=== PATIENT | male | born 2000 | race Hispanic/Latino ===

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

== ENCOUNTER 2022-07-18 09:36 | Emergency (ER) | payer OTHER, SELFPAY ==
--- OUTSIDE RECORDS SUMMARY | 2022-07-18 09:41 | XMS REPORT | Continuity of Care Document ---
:2000 Author Organization [facility] t Address [address] [place] [address] [address]. [address] [place] [address] Care Team Providers Name Role Phone Pob1, Acute Care Clinic Attending Clinician Unavailable Katharina Minor Attending Clinician KATHARINA FISHER Attending Clinician Unavailable Doctor Unassigned, [place] Attending Clinician Unavailable Berenice Arreola Attending Clinician Payers Payer Name Policy Type Policy Number Effective Date Expiration Date S ource Problems Condition Condition Condition Status Onset Resolution Last Treating Co mments Source Name Details Category Date Date Treatment Clinician Date Cough Cough Disease Active 2019-0 Univers 2-06 ity of 00:00: [address] Lymphadeni Lymphadeni Disease Active 2018-0 U nivers tis tis 8-23 ity of 00:00: [address] Lactose Lactose Disease Active Univers intoleranc intoleranc it y of e e [facility] History of History of Disease Active Overview : Univers migraine migraine triggers ity of headaches headaches - [place], Medical noise, Branch chocolate Allergic Allergic Disease Active Overview: Un yuri rhinitis, rhinitis, Usually ity of seasonal seasonal in the [facility] Allergies, Adverse Reactions, Alerts Allergy Allergy Status Severity Reaction(s) Onset Inactive Treating Comm ents Source Name Type Date Date Clinician NO KNOWN Drug Active Univers ALLERGIE Class ity of S [facility] Social History Social Habit Start Date Stop Date Quantity Comments Source Sex Assigned At Universit y of [facility] History of Cigarette Smoker Universi ty of tobacco use [facility] Alcohol intake 2020-01-24 2020-01-24 University of 00:00:00 00:00:00 [facility] Cigarettes smoked 2020-01-24 2020-01-24 Univers ity of current (pack per 00:00:00 00:00:00 ) - Reported [place] Tobacco Comment 2018-12-11 2018-12-11 He currently Univers ity of 00:00:00 00:00:00 occasionally vapes Formerly [facility] - nicotine free by [place] report Smoking Status Start Date Stop Date Source Current every day 2020-01-24 00:00:00 [facility] smoker [facility] Branch Former smoker 2019-03-03 00:00:00 2019-03-03 00:00:00 [facility] Medications Ordered Filled Start Stop Current Ordering Indication Dosage Frequency Signature Comments Components Source Medication Medication Date Date Medication? Clinician (SIG) Name Name ibuprofen 2019- 2020- No 800mg 800 mg, Uni vers (IBU) 12-17 Oral, ity of tablet 800 23:00: 22:16 ONCE, 1 [place] as mg 00 :00 dose, [facility] 12/17/19 at [place] 1700, BEBETO ondansetron 2019- 2020- No 4mg 4 mg, Univ ers (ZOFRAN-ODT 12-17 Oral, ity of ) 23:00: 22:16 ONCE, 1 [place] disintegrat 00 :00 dose, [facility] ical ing tablet 12/17/19 at [facility] 4 mg 1700, Routine ondansetron 2020-0 Yes [id number] 4mg Take 1 Univers (ZOFRAN 2-12 tablet by ity of ODT) 4 mg 00:00: mouth [place] disintegrat 00 every 8 Medic al ing tablet (eight) Branch hours as needed for Nausea and Vomiting (N/V) for up to 9 doses. ondansetron 2020-0 Yes [id number] 4mg Take 1 Univers (ZOFRAN 2-12 tablet by ity of ODT) 4 mg 00:00: mouth [place] disintegrat 00 every 8 Medic al ing tablet (eight) Branch hours as needed for Nausea and Vomiting (N/V) for up to 9 doses. ondansetron 2020-0 Yes [id number] 4mg Take 1 Univers (ZOFRAN 2-12 tablet by ity of ODT) 4 mg 00:00: mouth [place] disintegrat 00 every 8 Medic al ing tablet (eight) Branch hours as needed for Nausea and Vomiting (N/V) for up to 9 doses. ondansetron 2020-0 Yes [id number] 4mg Take 1 Univers (ZOFRAN 2-12 tablet by ity of ODT) 4 mg 00:00: mouth [place] disintegrat 00 every 8 Medic al ing tablet (eight) Branch hours as needed for Nausea and Vomiting (N/V) for up to 9 doses. ondansetron 2020- No [id number] 4mg Take 1 Univers 4 mg 03-03 tablet by ity of disintegr[place] 00:00: 00:[place] tablet 00 :00 every 8 Medica l (eight) Branch hours as needed for Nausea and Vomiting (N/V). Immunizations Ordered Immunization Filled Immunization Date Status Commen ts Source Name Name PPD (TB) 2018-06-26 Completed University of 00:00:00 [facility] PPD (TB) 2018-06-26 Completed University of 00:00:00 [facility] PPD (TB) 2018-06-26 Completed University of 00:00:00 [facility] PPD (TB) 2018-06-26 Completed University of 00:00:00 [facility] HPV 2017-04-23 Completed University of 00:00:00 [facility] Meningococcal 2017-04-23 Completed University of Vaccine 00:00:00 [facility] HPV 2017-04-23 Completed University of 00:00:00 [facility] Meningococcal 2017-04-23 Completed University of Vaccine 00:00:00 [facility] HPV 2017-04-23 Completed University of 00:00:00 [facility] Meningococcal 2017-04-23 Completed University of Vaccine 00:00:00 [facility] HPV 2017-04-23 Completed University of 00:00:00 [facility] Meningococcal 2017-04-23 Completed University of Vaccine 00:00:00 [facility] HEPATITIS A 2011-02-22 Completed University of 00:00:00 [facility] HPV 2011-02-22 Completed University of 00:00:00 [facility] Meningococcal 2011-02-22 Completed University of Vaccine 00:00:00 [facility] Tdap 2011-02-22 Completed University of 00:00:00 [facility] HEPATITIS A 2011-02-22 Completed University of 00:00:00 [facility] HPV 2011-02-22 Completed University of 00:00:00 [facility] Meningococcal 2011-02-22 Completed University of Vaccine 00:00:00 [facility] Tdap 2011-02-22 Completed University of 00:00:00 [facility] HEPATITIS A 2011-02-22 Completed University of 00:00:00 [facility] HPV 2011-02-22 Completed University of 00:00:00 [facility] Meningococcal 2011-02-22 Completed University of Vaccine 00:00:00 [facility] Tdap 2011-02-22 Completed University of 00:00:00 [facility] HEPATITIS A 2011-02-22 Completed University of 00:00:00 [facility] HPV 2011-02-22 Completed University of 00:00:00 [facility] Meningococcal 2011-02-22 Completed University of Vaccine 00:00:00 [facility] Tdap 2011-02-22 Completed University of 00:00:00 [facility] HEPATITIS A 2010-01-28 Completed University of 00:00:00 [facility] Varicella 2010-01-28 Completed University of (varivax)(chicken 00:00:00 [place] [facility] pox) Branch HEPATITIS A 2010-01-28 Completed University of 00:00:00 [facility] Varicella 2010-01-28 Completed University of (varivax)(chicken 00:00:00 [place] [facility] pox) Branch HEPATITIS A 2010-01-28 Completed University of 00:00:00 [facility] Varicella 2010-01-28 Completed University of (varivax)(chicken 00:00:00 [place] [facility] pox) Branch HEPATITIS A 2010-01-28 Completed University of 00:00:00 [facility] Varicella 2010-01-28 Completed University of (varivax)(chicken 00:00:00 [place] [facility] [place] pox) [place] Influenza Virus 2009-09-16 Completed Universit y of Vaccine 00:00:00 [facility] Influenza Virus 2009-09-16 Completed Universit y of Vaccine 00:00:00 [facility] Influenza Virus 2009-09-16 Completed Universit y of Vaccine 00:00:00 [facility] Influenza Virus 2009-09-16 Completed Universit y of Vaccine 00:00:00 [facility] Hep B, Adol or Pedi 2004-06-10 Completed Unive rsity of Dosage 00:00:00 [facility] Hep B, Adol or Pedi 2004-06-10 Completed Unive rsity of Dosage 00:00:00 [facility] Hep B, Adol or Pedi 2004-06-10 Completed Unive rsity of Dosage 00:00:00 [facility] Hep B, Adol or Pedi 2004-06-10 Completed Unive rsity of Dosage 00:00:00 [facility] DTAP 2004-06-09 Completed University of 00:00:00 [facility] MMR 2004-06-09 Completed University of 00:00:00 [facility] Polio (IPV/OPV) 2004-06-09 Completed Universit y of 00:00:00 [facility] DTAP 2004-06-09 Completed University of 00:00:00 [facility] MMR 2004-06-09 Completed University of 00:00:00 [facility] Polio (IPV/OPV) 2004-06-09 Completed Universit y of 00:00:00 [facility] DTAP 2004-06-09 Completed University of 00:00:00 [facility] MMR 2004-06-09 Completed University of 00:00:00 [facility] Polio (IPV/OPV) 2004-06-09 Completed Universit y of 00:00:00 [facility] DTAP 2004-06-09 Completed University of 00:00:00 [facility] MMR 2004-06-09 Completed University of 00:00:00 [facility] Polio (IPV/OPV) 2004-06-09 Completed Universit y of 00:00:00 [facility] HIB 4 Dose Schedule 2001-05-17 Completed Unive rsity of 00:00:00 [facility] Hep B, Adol or Pedi 2001-05-17 Completed Unive rsity of Dosage 00:00:00 [facility] MMR 2001-05-17 Completed University of 00:00:00 [facility] Varicella 2001-05-17 Completed University of (varivax)(chicken 00:00:00 [place] [facility] [place] pox) Branch Pneumococcal 7 2001-05-17 Completed University of Conjugate, PCV7 00:00:00 [facility] ical (Prevnar7) Branch HIB 4 Dose Schedule 2001-05-17 Completed Unive rsity of 00:00:00 [facility] Hep B, Adol or Pedi 2001-05-17 Completed Unive rsity of Dosage 00:00:00 [facility] MMR 2001-05-17 Completed University of 00:00:00 [facility] Varicella 2001-05-17 Completed University of (varivax)(chicken 00:00:00 [place] [facility] [place] pox) Branch Pneumococcal 7 2001-05-17 Completed University of Conjugate, PCV7 00:00:00 [place] [facility] (Prevnar7) Branch HIB 4 Dose Schedule 2001-05-17 Completed Unive rsity of 00:00:00 [facility] Hep B, Adol or Pedi 2001-05-17 Completed Unive rsity of Dosage 00:00:00 [facility] MMR 2001-05-17 Completed University of 00:00:00 [facility] Varicella 2001-05-17 Completed University of (varivax)(chicken 00:00:00 [place] [facility] pox) Branch Pneumococcal 7 2001-05-17 Completed University of Conjugate, PCV7 00:00:00 [place] [facility] (Prevnar7) Branch HIB 4 Dose Schedule 2001-05-17 Completed Unive rsity of 00:00:00 [facility] Hep B, Adol or Pedi 2001-05-17 Completed Unive rsity of Dosage 00:00:00 [facility] MMR 2001-05-17 Completed University of 00:00:00 [facility] Varicella 2001-05-17 Completed University of (varivax)(chicken 00:00:00 [facility] [place] edical pox) Branch Pneumococcal 7 2001-05-17 Completed University of Conjugate, PCV7 00:00:00 [place] [facility] (Prevnar7) Branch DTAP 2000 Completed University of 00:00:00 [facility] HIB 4 Dose Schedule 2000 Completed Unive rsity of 00:00:00 [facility] Hep B, Adol or Pedi 2000 Completed Unive rsity of Dosage 00:00:00 [facility] Polio (IPV/OPV) 2000 Completed Universit y of 00:00:00 [facility] DTAP 2000 Completed University of 00:00:00 [facility] HIB 4 Dose Schedule 2000 Completed Unive rsity of 00:00:00 [facility] Hep B, Adol or Pedi 2000 Completed Unive rsity of Dosage 00:00:00 [facility] Polio (IPV/OPV) 2000 Completed Universit y of 00:00:00 [facility] DTAP 2000 Completed University of 00:00:00 [facility] HIB 4 Dose Schedule 2000 Completed Unive rsity of 00:00:00 [facility] Hep B, Adol or Pedi 2000 Completed Unive rsity of Dosage 00:00:00 [facility] Polio (IPV/OPV) 2000 Completed Universit y of 00:00:00 [facility] DTAP 2000 Completed University of 00:00:00 [facility] HIB 4 Dose Schedule 2000 Completed Unive rsity of 00:00:00 [facility] Hep B, Adol or Pedi 2000 Completed Unive rsity of Dosage 00:00:00 [facility] Polio (IPV/OPV) 2000 Completed Universit y of 00:00:00 [facility] DTAP 2000 Completed University of 00:00:00 [facility] HIB 4 Dose Schedule 2000 Completed Unive rsity of 00:00:00 [facility] Polio (IPV/OPV) 2000 Completed Universit y of 00:00:00 [facility] DTAP 2000 Completed University of 00:00:00 [facility] HIB 4 Dose Schedule 2000 Completed Unive rsity of 00:00:00 [facility] Polio (IPV/OPV) 2000 Completed Universit y of 00:00:00 [facility] DTAP 2000 Completed University of 00:00:00 [facility] HIB 4 Dose Schedule 2000 Completed Unive rsity of 00:00:00 [facility] Polio (IPV/OPV) 2000 Completed Universit y of 00:00:00 [facility] DTAP 2000 Completed University of 00:00:00 [facility] HIB 4 Dose Schedule 2000 Completed Unive rsity of 00:00:00 [facility] Polio (IPV/OPV) 2000 Completed Universit y of 00:00:00 [facility] DTAP 2000 Completed University of 00:00:00 [facility] HIB 4 Dose Schedule 2000 Completed Unive rsity of 00:00:00 [facility] Polio (IPV/OPV) 2000 Completed Universit y of 00:00:00 [facility] DTAP 2000 Completed University of 00:00:00 [place] [facility] HIB 4 Dose Schedule 2000 Completed Unive rsity of 00:00:00 [place] [facility] Polio (IPV/OPV) 2000 Completed Universit y of 00:00:00 [place] [facility] DTAP 2000 Completed University of 00:00:00 [place] [facility] HIB 4 Dose Schedule 2000 Completed Unive rsity of 00:00:00 [place] [facility] Polio (IPV/OPV) 2000 Completed Universit y of 00:00:00 [place] [facility] DTAP 2000 Completed University of 00:00:00 [place] [facility] HIB 4 Dose Schedule 2000 Completed Unive rsity of 00:00:00 [facility] Branch Polio (IPV/OPV) 2000 Completed Universit y of 00:00:00 [facility] Vital Signs Vital Name Observation Time Observation Value Comments Source Systolic blood 2020-01-24 16:24:00 134 mm[Hg] Univer sity of pressure [facility] Diastolic blood 2020-01-24 16:24:00 84 mm[Hg] Unive rsity of pressure [facility] Heart rate 2020-01-24 16:24:00 66 /min Universi ty of [facility] Body temperature 2020-01-24 16:24:00 37.44 Judy Univ ersity of [facility] Body weight 2020-01-24 16:24:00 47.628 kg Universi ty [facility] Oxygen saturation in 2020-01-24 16:24:00 97 /min University of Arterial blood by [facility] Pulse oximetry Branch Body weight 2019-12-17 21:46:00 50.803 kg Universi ty of [place] [facility] BMI 2019-12-17 21:46:00 17.03 kg/m2 Universi ty of [facility] Oxygen saturation in 2019-12-17 21:46:00 100 /min University of Arterial blood by [facility] Pulse oximetry Branch Systolic blood 2019-12-17 21:46:00 117 mm[Hg] Univer sity of pressure [facility] Diastolic blood 2019-12-17 21:46:00 61 mm[Hg] Unive rsity of pressure [facility] Heart rate 2019-12-17 21:46:00 83 /min Universi ty of [facility] Body temperature 2019-12-17 21:46:00 37.17 Judy [facility] Respiratory rate 2019-12-17 21:46:00 18 /min [facility] Body height 2019-12-17 21:46:00 172.7 cm [facility] Procedures Procedure Date / Time Performed Performing Clinician Sourc e CONSENT/REFUSAL FOR 2020-01-24 05:01:00 [facility]igned, [facility] Branch TREATMENT POCT FLU A AND B 2020-01-24 00:00:00 Katharina Fisher [facility] (MOLECULAR) [facility] RAPID STREP SCREEN 2019-12-17 21:57:00 Berenice Thomas [facility] FOR GROUP A Medical Branch ADC,CLC OR LCC ONLY - 2019-12-17 21:57:00 Berenice Thomas [facility] INFLUENZA A & B [facility] DIRECT ANTIGEN CONSENT/REFUSAL FOR 2019-12-17 21:34:10 [facility] Name [facility] TREATMENT NOTICE OF PRIVACY 2019-12-17 21:31:20 Doctor Unassigned, No [facility] PRACTICES Name [facility] Encounters Start End Encounter Admission Attending Care Care Encounter Source Date/Time Date/Time Type Type Clinicians Facility Department ID 2020-01-24 2020-01-24 Office Pob1, Acute Care Clinic [facility] [id number] Univers 11:15:37 12:12:57 Visit Katharina Fisher [facility] [id number] ity [facility] [id number] [place] as [id number] dical nal 044 Branch Office [address] 2020-01-24 2020-01-24 Outpatient [facility] [id number] Univers 11:20:00 11:20:00 [id number] ity of [facility] 2020-01-24 2020-01-24 Outpatient R NATALIA [facility] [id number] Univers 11:20:00 11:20:00 KATHARINA ity of [facility] 2020-01-24 2020-01-24 Orders Doctor ALARCON [id number] Univers 00:00:00 00:00:00 Only UnassDANIEL hyde [id number] ity of [place] [facility] [id number] [place] as [id number] [facility] 009 Branch 2019-12-17 2019-12-17 Emergency MATEO Thomas [id number] Univers 15:58:17 16:58:00 Berenice Villarreal [id number] i ty of [place] [id number] [place] [id number] [facility] 084 Branch Results Test Description Test Time Test Comments Results Result Comments Source POCT FLU A AND B (MOLECULAR) 2020-01-24 18:04:00 Test Item Value Reference Range Interpretation Comme nts POCT INFLUENZA A (test code = 3840) neg Negative - Negativ e POCT INFLUENZA B (test code = 3841) neg Negative - [facility]ativ e [facility] 18:04:00 Test Item Value Reference Range Interpretation Comments POCT INFLUENZA A (test code = 3840) neg Negative - Negativ e POCT INFLUENZA B (test code = 3841) neg Negative - Negativ e [facility] - INFLUENZA A & B DIRECT [id number] 22:32:00 Test Item Value Reference Range Interpretation Comments Influenza A (test code = 54181-5) Negative Negative Influenza B (test code = 15386-9) Negative Negative Lab Interpretation (test code = Normal 71354-9) [facility] [id number] 22:17:00 Test Item Value Reference Range Interpretation Comments Streptococcus pyogenes (group A) Negative Negative antigen (test code = 38100-7) Lab Interpretation (test code = Normal 06561-5) [facility]
--- NOTE | 2022-07-18 12:45 | RAD REPORT ---
EXAM DESCRIPTION: US - Extrem Venous W Compress Darin - 07/18/2022 12:24 pm CLINICAL HISTORY: pain, numbnessbilateral lower extremities COMPARISON: None. TECHNIQUE: Real-time sonographic evaluation of the bilateral lower extremity common femoral, superfi cial femoral, popliteal and posterior tibial veins was performed. FINDINGS: Normal compressibility, flow augmentation, phasic flow and spontaneous flow are identified in the left and right lower extremity common femoral, superficial femoral, popliteal and posterior t ibial veins. No intraluminal filling defects seen. IMPRESSION: No DVT in either lower extremity.
--- NOTE | 2022-07-18 12:57 | RAD REPORT ---
EXAM DESCRIPTION: RAD - Lumbar Spine 3 Views - 07/18/2022 12:30 pm CLINICAL HISTORY: Pain Radiculopathy COMPARISON: No comparisons FINDINGS: Vertebral body heights appear maintained. No compression fracture noted. Disc spaces are m aintained. No spondylolysis or spondylolisthesis. IMPRESSION: Negative study.
[2022-07-18 13:20] LABS: SARS-CoV-2 Antigen Rapid Res Negative (Negative)
[2022-07-18 13:22] LABS: Albumin 4.2 g/dL (3.4-5.0); Bilirubin Total 1.5 mg/dL (0.2-1.0); Potassium 3.2 mmol/L (3.5-5.1); Protein, Total 7.4 g/dL (6.4-8.2)
[2022-07-18 13:42] LABS: Absolute Lymphocytes (CBC) 1.2 K/uL (0.7-4.9); Hematocrit 55.3 % (39.6-49.0); MCV 98.7 fL (80-100); MPV 8.4 fL (7.6-11.3)
--- NOTE | 2022-07-18 14:33 | RAD REPORT ---
EXAM DESCRIPTION: MRI - Lumbar Spine Wo [place]- 07/18/2022 2:07 pm CLINICAL HISTORY: leg paresthesias, weakness, back pain COMPARISON: No comparisons FINDINGS: Vertebral body heights are within normal limits. No aggressive marrow pattern is observed. No fracture is suspected. The conus medullaris terminates at a normal level. No thickening of the cauda equina or clumping of n erve roots seen. L1-2 level: No significant findings. L2-3 level: No significant findings. L3-4 level: Mild facet hypertrophy. L4-5 level: Mild facet hypertrophy. L5-S1 level: Mild facet hypertrophy. IMPRESSION: No significant or worrisome abnormality seen.
[2022-07-18 14:43] LABS: Urine Blood Negative (Negative); Urine Glucose Negative (Negative); Urine Protein 1+ (Negative); Urine Specific Gravity 1.025 (1.005-1.030)
[2022-07-18 15:06] LABS: Barbiturates NEGATIVE (NEGATIVE); Benzodiazepines NEGATIVE (NEGATIVE); Cocaine NEGATIVE (NEGATIVE); METHAMPHETAM NEGATIVE (NEGATIVE); Methadone NEGATIVE (NEGATIVE); Opiates POSITIVE (NEGATIVE); Phencyclidine NEGATIVE (NEGATIVE); THC Cannibis POSITIVE (NEGATIVE)
--- NOTE | 2022-07-18 15:24 | ER ---
Nurse's Notes [facility] Name: Jose Boyer Jr Age: 22 yrs Sex: Male : 2000 Arrival Date: 07/18/2022 Time: 09:38 Bed 9 Private MD: Diagnosis: Peripheral neuropathy;UTI/ Urinary tract infection, site not specified Presentation: 07/18 10:24 Chief complaint: Patient states: Numbness of legs and toes x 2 weeks, low back pain [facility] while laying down. Coronavirus screen: At this time, the client does not indicate any symptoms associated with coronavirus-19. Ebola Screen: No symptoms or risks identified at this time. Initial Sepsis Screen: Does the patient meet any 2 criteria? No. Patient's initial sepsis screen is negative. Does the patient have a suspected source of infection? No. Patient's initial sepsis screen is negative. Risk Assessment: Do you want to hurt yourself or someone else? Patient reports no desire to harm self or others. Onset of symptoms was July 04, 2022. 10:24 Method Of Arrival: Ambulatory [facility] 10:24 Acuity: LUAN 2 jl7 Triage Assessment: 10:24 General: Appears in no apparent distress. uncomfortable, Behavior is cooperative, jl7 appropriate for age, anxious. Pain: Complains of pain in right leg and left leg Pain currently is 5 out of 10 on a pain scale. at worst was 9 out of 10 on a pain scale. Historical: - Allergies: 10:25 No Known Allergies; [facility] - Home Meds: 10:25 None [Active]; [facility] - PMHx: 10:25 None; [facility] - PSHx: 10:25 None; [facility] - Immunization history:: Adult Immunizations not up to date. - Social history:: Smoking status: Patient reports the use of cigarette tobacco products, smokes one-half pack cigarettes per day, Patient uses alcohol, on a daily basis. 2 tall boys, last drink 2 days ago. Screenin:56 Abuse screen: Denies threats or abuse. Denies injuries from another. Nutritional jg9 screening: No deficits noted. Tuberculosis screening: No symptoms or risk factors identified. Fall Risk None identified. Assessment: 12:45 Reassessment: No changes from previously documented assessment. Patient and/or family jg9 updated on plan of care and expected duration. Pain level reassessed. Patient is alert, oriented x 3, equal unlabored respirations, skin warm/dry/pink. 14:00 Reassessment: Patient appears in no apparent distress at this time. No changes from jg9 previously documented assessment. Patient and/or family updated on plan of care and expected duration. Pain level reassessed. Patient is alert, oriented x 3, equal unlabored respirations, skin warm/dry/pink. 15:00 Reassessment: Patient and/or family updated on plan of care and expected duration. Pain jg9 level reassessed. Patient is alert, oriented x 3, equal unlabored respirations, skin warm/dry/pink. Vital Signs: 10:24 BP 151 / 107; Pulse 127; Resp 17; Temp 98.9; Pulse Ox 100% ; Weight 60.78 kg; Height 5 [facility] ft. 9 in. (175.26 cm); Pain 5/10; 12:45 BP 143 / 90; Pulse 104; Resp 18 S; Pulse Ox 99% on R/A; jg9 13:00 BP 129 / 85; Pulse 85; Resp 13 S; Pulse Ox 98% on R/A; jg9 14:00 BP 131 / 99; Pulse 70; Resp 12 S; Pulse Ox 99% on R/A; jg9 15:00 BP 131 / 100; Pulse 67; Resp 16 S; Pulse Ox 99% ; jg9 10:24 Body Mass Index 19.79 (60.78 kg, 175.26 cm) 5 ED Course: 09:38 Patient arrived in ED. rg4 10:24 Arm band placed on right wrist. jl7 10:25 Triage completed. 5 11:05 Ortiz Luong PA is PHCP. jmm 11:05 Nik Fajardo MD is Attending Physician. jmm 11:27 Arlin Haskins, NATHANAEL is Primary Nurse. jg9 12:26 US Extremity Venous W Compression Darin In Process Unspecified. EDMS 12:32 XRAY Lumbar Spine (3 Views) In Process Unspecified. EDMS 12:45 Inserted saline lock: 20 gauge in right antecubital area, using aseptic technique. jg9 Blood collected. 12:56 Patient has correct armband on for positive identification. Bed in low position. Call jg9 light in reach. Side rails up X 1. 14:09 MRI Lumbar Spine wo Con In Process Unspecified. EDMS 15:23 Bill Banegas MD is Referral Physician. [facility] 15:24 Ulises Patterson MD is Referral Physician. [facility] 15:43 No provider procedures requiring assistance completed. jg9 15:44 IV discontinued. jg9 Administered Medications: 15:37 Drug: Rocephin (cefTRIAXone) 1 grams Route: IV; Rate: calculated rate; Site: right jg9 antecubital; 15:40 Follow up: IV Status: Completed infusion; IV Intake: 10ml jg9 15:37 Drug: Zithromax (azithromycin) 1 grams Route: PO; jg9 15:42 Follow up: Response: No adverse reaction; Medication administered at discharge. jg9 Medication: 15:44 VIS not applicable for this client. jg9 Intake: 15:40 IV: 10ml; Total: 10ml. jg9 Outcome: 15:24 Discharge ordered by MD. [facility] 15:43 Discharged to home ambulatory. jg9 15:43 Condition: stable 15:43 Discharge instructions given to patient, Instructed on discharge instructions, follow up and referral plans. Demonstrated understanding of instructions, follow-up care, Prescriptions given X 2. 15:44 Patient left the ED. jg9 Signatures: Dispatcher [employer] EDPA Ortiz Luong PA PA jmm Garcia, Rubi rg4 Rama Levy RN RN jl7 Lisa Alcazar RN RN jh5 Arlin Haskins RN RN jg9 Corrections: (The following items were deleted from the chart) 10:37 10:24 Acuity: LUAN 3 zaida presley
--- NOTE | 2022-07-18 15:24 | EDPHYS ---
Physician Documentation [facility] Name: Jose Boyer Jr Age: 22 yrs Sex: Male : 2000 Arrival Date: 07/18/2022 Time: 09:38 Bed 9 Private MD: ED Physician Nik Fajardo HPI: 07/18 10:41 This 22 yrs old Male presents to ER via Ambulatory with complaints of Numbness jmm Of Leg X 1wk, Trouble Walking. 10:41 22-year-old male with no known chronic medical conditions presents emerged department jmm with complaints of right and left lower extremity pain and numbness which has been ongoing for approximately 3 weeks. Denies fever or chills. Denies known back injury. Does state having a family history of fibromyalgia.. Historical: - Allergies: 10:25 No Known Allergies; [facility] - Home Meds: 10:25 None [Active]; [facility] - PMHx: 10:25 None; [facility] - PSHx: 10:25 None; [facility] - Immunization history:: Adult Immunizations not up to date. - Social history:: Smoking status: Patient reports the use of cigarette tobacco products, smokes one-half pack cigarettes per day, Patient uses alcohol, on a daily basis. 2 tall boys, last drink 2 days ago. ROS: 10:41 Constitutional: Negative for fever, chills, and weight loss, Cardiovascular: Negative jmm for chest pain, palpitations, and edema, Respiratory: Negative for shortness of breath, cough, wheezing, and pleuritic chest pain. 10:41 MS/extremity: Positive for paresthesias. 10:41 All other systems are negative. Exam: 10:41 Constitutional: This is a well developed, well nourished patient who is awake, alert, jmm and in no acute distress. Head/Face: atraumatic. Eyes: EOMI, no conjunctival erythema appreciated ENT: Moist Mucus Membranes Neck: Trachea midline, Supple Chest/axilla: Normal chest wall appearance and motion. Cardiovascular: Regular rate and rhythm. No edema appreciated Respiratory: Normal respirations, no respiratory distress appreciated Abdomen/GI: Non distended Back: Normal ROM 10:41 Musculoskeletal/extremity: Full range of motion appreciated to the right and left knee, ankle. Compartments are soft, sensation is intact bilaterally full dorsalis pedis pulse, neurovascular intact. 10:41 Skin: Appearance: Color: normal in color. 10:41 Neuro: Orientation: is normal, Mentation: is normal, Memory: is normal. 10:41 Psych: Behavior/mood is pleasant, cooperative. Vital Signs: 10:24 BP 151 / 107; Pulse 127; Resp 17; Temp 98.9; Pulse Ox 100% ; Weight 60.78 kg; Height 5 jh5 ft. 9 in. (175.26 cm); Pain 5/10; 12:45 BP 143 / 90; Pulse 104; Resp 18 S; Pulse Ox 99% on R/A; jg9 13:00 BP 129 / 85; Pulse 85; Resp 13 S; Pulse Ox 98% on R/A; jg9 14:00 BP 131 / 99; Pulse 70; Resp 12 S; Pulse Ox 99% on R/A; jg9 15:00 BP 131 / 100; Pulse 67; Resp 16 S; Pulse Ox 99% ; jg9 10:24 Body Mass Index 19.79 (60.78 kg, 175.26 cm) [facility] MDM: 11:05 Patient medically screened. aliza 15:22 Data reviewed: vital signs, nurses notes. Counseling: I had a detailed discussion with aliza the patient and/or guardian regarding: the historical points, exam findings, and any diagnostic results supporting the discharge/admit diagnosis, lab results, radiology results, the need for outpatient follow up, to return to the emergency department if symptoms worsen or persist or if there are any questions or concerns that arise at home. ED course: Imaging studies did not reveal any potential cause of paresthesias of the lower extremities. Patient is able to ambulate. Patient appears to have a peripheral neuropathy or restless leg syndrome. Advised to follow-up with neurology for further evaluation otherwise given strict return precautions. Patient and mother understood and agrees plan of care.. 07/18 10:41 Order name: SARS RAPID; Complete Time: 13:27 [facility] 07/18 10:41 Order name: Flu; Complete Time: 13:27 w 07/18 10:41 Order name: Urine Drug Screen; Complete Time: 15:09 w 07/18 10:41 Order name: Urine Microscopic Only; Complete Time: 15:34 [facility] 07/18 11:06 Order name: CBC with Diff; Complete Time: 13:53 [facility] 07/18 11:06 Order name: CMP; Complete Time: 13:27 [facility] 07/18 10:41 Order name: Urine Dipstick-Ancillary (obtain specimen); Complete Time: 15:37 [facility] 07/18 10:41 Order name: XRAY Lumbar Spine (3 Views); Complete Time: 12:58 sn[facility] 07/18 11:06 Order name: Saline Lock; Complete Time: 15:37 [facility] 07/18 11:07 Order name: MRI Lumbar Spine wo Con; Complete Time: 14:35 [facility] 07/18 11:15 Order name: US Extremity Venous W Compression Darin; Complete Time: 12:52 [facility] 07/18 14:44 Order name: Urine Dipstick-Ancillary; Complete Time: 15:03 EDMS Administered Medications: 15:37 Drug: Rocephin (cefTRIAXone) 1 grams Route: IV; Rate: calculated rate; Site: right [facility] antecubital; 15:40 Follow up: IV Status: Completed infusion; IV Intake: 10ml [facility] 15:37 Drug: Zithromax (azithromycin) 1 grams Route: PO; [facility] 15:42 Follow up: Response: No adverse reaction; Medication administered at discharge. [facility] Disposition Summary: 07/18/22 15:24 Discharge Ordered Location: Home [facility] Condition: Stable [facility] Diagnosis - Peripheral neuropathy [facility] - UTI/ Urinary tract infection, site not specified [facility] Followup: [facility] - With: Bill Banegas MD - When: 2 - 3 days - Reason: Recheck today's complaints, Continuance of care, Re-evaluation by your physician Followup: [facility] - With: Ulises Patterson MD - When: 2 - 3 days - Reason: Recheck today's complaints, Continuance of care, Re-evaluation by your physician Discharge Instructions: - Discharge Summary Sheet [facility] - Urinary Tract Infection, Adult jm - Peripheral Neuropathy jm - Restless Legs Syndrome [facility] Forms: - Medication Reconciliation Form [facility] - Thank You Letter [facility] - Antibiotic Education [facility] - Prescription Opioid Use [facility] - Work release form [facility] - Family Work Release [facility] Prescriptions: - gabapentin 100 mg Oral capsule - take 1 capsule by ORAL route 3 times per day As needed; 90 capsule; Refills: 0, [facility] Product Selection Permitted - Cephalexin 500 mg Oral Capsule - take 1 capsule by ORAL route every 8 hours for 10 days; 30 capsule; Refills: 0, jmm Product Selection Permitted Signatures: Dispatcher [employer] Idalia Segovia, [id number] DEVELOPER-Csnw Ortiz Luong PA PA jmm Leal, Jahala, RN RN jl7 Lisa Alcazar RN RN jh5 Arlin Haskins RN RN jg9
[2022-07-18 15:28] LABS: Urine Mucus 4+ /HPF (None Seen); Urine RBC <5 /HPF (None Seen)
[2022-07-18] MEDS ORDERED: AZITHROMYCIN 250 MG TAB ONE (15:37)
[2022-07-18] MEDS ORDERED: CEFTRIAXONE 1000 MG/VIAL ONE (15:37)
[2022-07-18 21:46] VITALS: TEMP 98.9
[2022-07-18 21:55] VITALS: O2SAT 99
[2022-07-18 22:08] VITALS: BP 131/100
== END 2022-07-18 15:44 | disposition home or self-care (01) ==
LOC: ER 09:36
DX: G62.9 Polyneuropathy, unspecified (principal); N39.0 Urinary tract infection, site not specified; F17.210 Nicotine dependence, cigarettes, uncomplicated
CPT/HCPCS: 36415; 72100; 72148; 80053; 80307; 81003; 81015; 85025; 87804; 87811; 93970; 96374; 99284